=== PATIENT | female | born 1940 | race Caucasian/White ===

== ENCOUNTER → 2016-07-16 | Outpatient (CLI) | payer MEDICARE ==
[2015-06-20 19:25] VITALS: BP 218/87
--- NOTE | 2016-07-16 09:19 | CARD ---
APPROVED REPORT EXAM: Two-dimensional and M-mode echocardiogram with Doppler and color Doppler. Other Information Quality : Average Rhythm : NSR INDICATION Murmur 2D DIMENSIONS RVDd3.1 (2.9-3.5cm)Left Atrium(2D)3.3 (1.6-4.0cm) IVSd1.2 (0.7-1.1cm)Aortic Root(2D)2.9 (2.0-3.7cm) LVDd3.7 (3.9-5.9cm)LVOT Diameter2.0 (1.8-2.4cm) PWd1.2 (0.7-1.1cm)LVDs2.6 (2.5-4.0cm) FS (%) 31.7 %SV36.1 ml LVEF(%)60.6 (>50%) Aortic Valve AoV Peak Abimael.195.6cm/sAoV VTI43.7cm AO Peak GR.15.3mmHgLVOT Peak Abimael.117.5cm/s LVOT VTI 26.96cmAO Mean GR.9mmHg LUANA (VMAX)1.87xj7KQE (VTI)1.98cm2 AI P 1/2 Loig167rz Mitral Valve MV E Ywgvzflc736.4cm/sMV DECEL SZWC029iv MV A Nocuamhg209.7cm/sMV E Mean Gr.4mmHg MV TRH96viH/A Ratio0.9 MV A Kdnwiulz053ueFLX (PHT)2.33cm2 TDI E/Lateral E'14.2E/Medial E'20.1 Pulmonary Valve PV Peak Uhspwjln37.7cm/sPV Peak Grad.3mmHg RVOT VTI12.8cm Tricuspid Valve TR P. Cxirriqu557gt/sRAP ZPYZNKML5rvXy TR Peak Gr.72krKrHSYB50gvFl Pulmonary Vein S1 Dprhawap52.0cm/sD2 Okeuxvxn43.2cm/s LEFT VENTRICLE The left ventricle is normal size. There is borderline concentric left ventricular hypertrophy. Left ventricle systolic function is normal. The Ejection Fraction is 55-60%. There is normal LV segmental wall motion. The left ventricular diastolic function and filling is normal for age. RIGHT VENTRICLE The right ventricle is normal size. The right ventricular systolic function is normal. ATRIA The left atrium size is normal. The right atrium size is normal. The interatrial septum is intact wit h no evidence for an atrial septal defect or patent foramen ovale as noted on 2-D or Doppler imaging. AORTIC VALVE The aortic valve is mildly to moderately sclerotic. Doppler and Color Flow revealed moderate aortic r egurgitation. There is no significant aortic valvular stenosis. MITRAL VALVE The mitral valve leaflets are thickened. There is no mitral valve stenosis. Doppler and Color Flow re vealed mild mitral regurgitation. TRICUSPID VALVE The tricuspid valve is normal in structure. Doppler and Color Flow revealed mild tricuspid regurgitat ion. The PA pressure was estimated at 30 mmHg. There is no tricuspid valve stenosis. PULMONIC VALVE The pulmonic valve is not well visualized. Doppler and Color Flow revealed trace to mild pulmonic shania vular regurgitation. There is no pulmonic valvular stenosis. GREAT VESSELS The aortic root is normal in size. Normal pulmonary venous flow (Doppler). The IVC is normal in size and collapses >50% with inspiration. PERICARDIAL EFFUSION There is no evidence of significant pericardial effusion. Critical Notification Critical Value: No <Conclusion> Left ventricle systolic function is normal. The Ejection Fraction is 55-60%. There is normal LV segmental wall motion. Doppler and Color Flow revealed moderate aortic regurgitation. Doppler and Color Flow revealed mild mitral regurgitation.
== END | disposition home or self-care (01) ==
LOC: ECHO 07:47
PROVIDERS: ATTEND Family Medicine
DX: R01.1 Cardiac murmur, unspecified (principal); I35.1 Nonrheumatic aortic (valve) insufficiency; I51.7 Cardiomegaly
CPT/HCPCS: 93306

== ENCOUNTER → 2017-08-28 | Outpatient (CLI) | payer OTHER | END | disposition home or self-care (01) | LOC: US 12:14 | DX: I70.293 Other atherosclerosis of native arteries of extremities, bilateral legs (principal); I10 Essential (primary) hypertension | CPT/HCPCS: 93925 ==

== ENCOUNTER → 2017-09-18 | Outpatient (CLI) | payer OTHER ==
[~2017-09-18] MED LIST: HEPARIN for ARTERIAL LINE 0 ML; IODIXANOL 320 MG/ML 100 ML VIAL.; LIDOCAINE WITH 8.4% SOD BICARB 3 ML DISP.SYRIN.
[2017-09-18 07:18] LABS: ADD MAN DIFF? NO
[2017-09-18 07:32] LABS: BASO % 1 % (0-3); EOS # 0.3 x10^3/uL (0.0-0.7); EOS % 4 % (0-3); HEMATOCRIT 39.4 % (36.0-47.0); LYMPH # 2.7 x10^3/uL (1.0-4.8); LYMPH % 34 % (24-48); MEAN CORPUSCULAR HEMOGLOBIN 25 pg (25-35); MEAN CORPUSCULAR HGB CONC 33 g/dL (31-37); MEAN CORPUSCULAR VOLUME 77 fL (79-100); MONO % 12 % (0-9); NEUT # 4.1 x10^3uL (1.8-7.7); NEUT % 51 % (31-73); PLATELET COUNT 206 x10^3/uL (140-400); RED BLOOD COUNT 5.13 x10^6/uL (3.50-5.40); RED CELL DISTRIBUTION WIDTH 14.6 % (11.5-14.5); WHITE BLOOD COUNT 8.1 x10^3/uL (4.0-11.0)
[2017-09-18 07:37] LABS: ANION GAP 7 (6-14); BLOOD UREA NITROGEN 17 mg/dL (7-20); CALCIUM 8.6 mg/dL (8.5-10.1); CARBON DIOXIDE 30 mmol/L (21-32); CHLORIDE 106 mmol/L (98-107); CREATININE 0.7 mg/dL (0.6-1.0); GFR 80.9; GLUCOSE 99 mg/dL (70-99); POTASSIUM 3.9 mmol/L (3.5-5.1); SODIUM 143 mmol/L (136-145)
[2017-09-18 07:39] LABS: PARTIAL THROMBOPLASTIN TIME 25 SEC (24-38); PROTHROMBIN TIME PATIENT 12.4 SEC (11.7-14.0)
[2017-09-18] MEDS: IOHEXOL 300 MG/ML 100ML VIAL. IV (08:47)
== END | disposition home or self-care (01) ==
LOC: INTRAD 06:55
DX: I70.0 Atherosclerosis of aorta (principal); I70.1 Atherosclerosis of renal artery; I70.293 Other atherosclerosis of native arteries of extremities, bilateral legs; Z90.49 Acquired absence of other specified parts of digestive tract; Z98.890 Other specified postprocedural states; I10 Essential (primary) hypertension; Z90.710 Acquired absence of both cervix and uterus; M19.90 Unspecified osteoarthritis, unspecified site; F17.200 Nicotine dependence, unspecified, uncomplicated; Z79.01 Long term (current) use of anticoagulants
CPT/HCPCS: 36415; 75635; 80048; 85025; 85610; 85730; Q9967

== ENCOUNTER 2017-10-21 06:40 | Outpatient (CLI) | payer OTHER ==
[2017-10-21 07:28] LABS: ADD MAN DIFF? NO
[2017-10-21 07:32] LABS: BASO # 0.1 x10^3/uL (0.0-0.2); BASO % 1 % (0-3); EOS # 0.4 x10^3/uL (0.0-0.7); EOS % 6 % (0-3); HEMATOCRIT 40.3 % (36.0-47.0); HEMOGLOBIN 13.2 g/dL (12.0-15.5); LYMPH % 42 % (24-48); MEAN CORPUSCULAR HEMOGLOBIN 25 pg (25-35); MEAN CORPUSCULAR HGB CONC 33 g/dL (31-37); MEAN CORPUSCULAR VOLUME 77 fL (79-100); MONO % 14 % (0-9); NEUT # 2.6 x10^3uL (1.8-7.7); NEUT % 37 % (31-73); PLATELET COUNT 193 x10^3/uL (140-400); RED BLOOD COUNT 5.22 x10^6/uL (3.50-5.40); RED CELL DISTRIBUTION WIDTH 14.9 % (11.5-14.5); WHITE BLOOD COUNT 7.1 x10^3/uL (4.0-11.0)
[2017-10-21 07:38] LABS: INR 0.9 (0.8-1.1); PROTHROMBIN TIME PATIENT 12.1 SEC (11.7-14.0)
[2017-10-21 08:07] LABS: ANION GAP 4 (6-14); BLOOD UREA NITROGEN 13 mg/dL (7-20); BUN/CREATININE RATIO 14 (6-20); CALCIUM 8.3 mg/dL (8.5-10.1); CARBON DIOXIDE 29 mmol/L (21-32); CHLORIDE 106 mmol/L (98-107); CREATININE 0.9 mg/dL (0.6-1.0); GFR 60.6; GLUCOSE 94 mg/dL (70-99); POTASSIUM 3.7 mmol/L (3.5-5.1); SODIUM 139 mmol/L (136-145)
[2017-10-21 08:19] LABS: ALBUMIN 3.6 g/dL (3.4-5.0); ALBUMIN/GLOBULIN RATIO 1.2 (1.0-1.7); ALK PHOS 65 U/L (46-116); ALT (SGPT) 16 U/L (14-59); AST (SGOT) 24 U/L (15-37); TOTAL BILIRUBIN 0.4 mg/dL (0.2-1.0); TOTAL PROTEIN 6.7 g/dL (6.4-8.2)
[2017-10-21] MEDS ORDERED: IODIXANOL 320 MG/ML 100 ML VIAL. (08:20)
[2017-10-21] MEDS ORDERED: LIDOCAINE WITH 8.4% SOD BICARB 3 ML DISP.SYRIN. (08:21)
[2017-10-21] MEDS ORDERED: HEPARIN for ARTERIAL LINE 1,500 ML (08:21)
[2017-10-21] MEDS ORDERED: HEPARIN for IV BOLUS 10,000 UNIT/10 ML VIAL. (08:22)
[2017-10-21] MEDS ORDERED: MIDAZOLAM HCL/PF 2 MG/2 ML VIAL. (08:22)
[2017-10-21] MEDS ORDERED: fentaNYL PF VIAL 100 MCG/2 ML VIAL ×2 (08:22→09:38)
[2017-10-21] MEDS: MIDAZOLAM HCL/PF 2 MG/2 ML VIAL. IV (08:45)
[2017-10-21] MEDS: LIDOCAINE WITH 8.4% SOD BICARB 3 ML DISP.SYRIN. IJ (08:45)
[2017-10-21] MEDS: IODIXANOL 320 MG/ML 100 ML VIAL. IART (08:45)
[2017-10-21] MEDS: fentaNYL PF VIAL 100 MCG/2 ML VIAL IV ×2 (08:45→09:51)
[2017-10-21] MEDS ORDERED: CONTRAST GIVEN. MC (09:00)
[2017-10-21] MEDS: HEPARIN for IV BOLUS 10,000 UNIT/10 ML VIAL. IV (09:00)
[2017-10-21] MEDS ORDERED: hydrALAZINE 20 MG/ML VIAL. (09:44)
[2017-10-21] MEDS: hydrALAZINE 20 MG/ML VIAL. IVP (09:52)
[2017-10-21] MEDS: IBUPROFEN 400 MG TABLET. PO (10:56)
[2017-10-21] MEDS: HYDROcodone/APAP 5/325MG 1 TAB TABLET PO (11:07)
[2017-10-22] MEDS ORDERED: CLOPIDOGREL BISULFATE 75 MG TABLET PO (08:00)
== END 2017-10-21 14:13 | disposition home or self-care (01) ==
LOC: INTRAD 06:40
DX: I70.292 Other atherosclerosis of native arteries of extremities, left leg (principal)
CPT/HCPCS: 36415; 37224; 75625; 75710; 76937; 80053; 85025; 85610; 99152; 99153; C1713; C1760; C1769; C1892; C1894; C2623; G0269; J0360; J1644; J2250; J3010

== ENCOUNTER 2017-10-27 06:33 | Emergency (ER) | payer OTHER | END 2017-10-27 09:35 | disposition home or self-care (01) | LOC: ER 06:33 | DX: R10.30 Lower abdominal pain, unspecified (principal); I10 Essential (primary) hypertension; I73.9 Peripheral vascular disease, unspecified | CPT/HCPCS: 93926; 99284-25 ==

== ENCOUNTER → 2017-12-04 | Outpatient (CLI) | payer OTHER ==
[2017-10-27 09:15] VITALS: BP 161/71
[~2017-12-04] MED LIST changes: +CLOP75TA PO; -HEPARIN for ARTERIAL LINE 0 ML; -IODIXANOL 320 MG/ML 100 ML VIAL.; -LIDOCAINE WITH 8.4% SOD BICARB 3 ML DISP.SYRIN.; +LISI10TA2 PO
--- NOTE | 2017-12-04 10:16 | CARD ---
MR#: [id number] Date of Study: 12/04/2017 Ordering Physician: ANNA MARRUFO, Referring Physician: ANNA MARRUFO, Tech: CHRISTAL Villalobos APPROVED REPORT EXAM: Two-dimensional and M-mode echocardiogram with Doppler and color Doppler. Other Information Quality : GoodHR: 72bpm INDICATION Moderate Aortic Regurgitation RISK FACTORS Hypertension 2D DIMENSIONS RVDd2.9 (2.9-3.5cm)Left Atrium(2D)3.6 (1.6-4.0cm) IVSd1.5 (0.7-1.1cm)Aortic Root(2D)3.1 (2.0-3.7cm) LVDd4.4 (3.9-5.9cm)LVOT Diameter2.0 (1.8-2.4cm) PWd1.2 (0.7-1.1cm)LVDs3.0 (2.5-4.0cm) FS (%) 31.9 %SV51.6 ml LVEF(%)60.2 (>50%) Aortic Valve AoV Peak Abimael.212.2cm/sAoV VTI47.7cm AO Peak GR.18.0mmHgLVOT Peak Abimael.122.0cm/s LVOT VTI 31.10cmAO Mean GR.10mmHg LUANA (VMAX)1.45ev3GRO (VTI)2.08cm2 AI P 1/2 Ouxi947hw Mitral Valve MV E Eroqvyrm89.0cm/sMV E Peak Gr.110mmHg MV DECEL LHKG251kuGZ A Wsohysdn498.2cm/s MV BNZ07dlH/A Ratio0.8 MVA (PHT)2.44cm2 TDI E/Lateral E'13.7E/Medial E'18.1 Pulmonary Valve PV Peak Paoyxvsa64.3cm/sPV Peak Grad.2mmHg Tricuspid Valve TR P. Grhztsst849uf/sRAP LVAOFFMY54ihFo TR Peak Gr.15dhYuTOMH71ovSy Pulmonary Vein S1 Woxjkjsl00.2cm/sD2 Dfhbpkls76.8cm/s LEFT VENTRICLE The left ventricle is normal size. There is mild to moderate concentric left ventricular hypertrophy. The left ventricular systolic function is normal. The ejection fraction is estimated at 60%. There i s normal LV segmental wall motion. Transmitral Doppler flow pattern is Grade I-abnormal relaxation pa ttern. RIGHT VENTRICLE The right ventricle is normal size. The right ventricular systolic function is normal. ATRIA The left atrium size is normal. The right atrium size is normal. The interatrial septum is intact wit h no evidence for an atrial septal defect or patent foramen ovale as noted on 2-D or Doppler imaging. AORTIC VALVE The aortic valve is mildly calcified. Doppler and Color Flow revealed moderate aortic regurgitation. There is no significant aortic valvular stenosis. There is no aortic valvular vegetation. MITRAL VALVE The mitral valve is mildly thickened. Mitral annular calcification is mild. There is no evidence of m itral valve prolapse. There is no mitral valve stenosis. Doppler and Color-flow revealed mild mitral regurgitation. TRICUSPID VALVE The tricuspid valve leaflets are thickened , but open well. Doppler and Color Flow revealed mild tric uspid regurgitation. There is moderate pulmonary hypertension. The PA pressure was estimated at 45 mm Hg. There is no tricuspid valve prolapse or vegetation. There is no tricuspid valve stenosis. PULMONIC VALVE The pulmonic valve is not well visualized. Doppler and Color Flow revealed no pulmonic valvular regur gitation. There is no pulmonic valvular stenosis. GREAT VESSELS The aortic root is normal size. The aortic root displays mild sclerocalcific changes of the aortic ro ot. The IVC is dilated and collapses <50% with inspiration. PERICARDIAL EFFUSION There is no pleural effusion. There is no evidence of significant pericardial effusion. Critical Notification Critical Value: No <Conclusion> The left ventricular systolic function is normal. The ejection fraction is estimated at 60%. There is normal LV segmental wall motion. Transmitral Doppler flow pattern is Grade I-abnormal relaxation pattern. Moderate aortic regurgitation. Mld mitral regurgitation. Mild tricuspid regurgitation. The PA pressure was estimated at 45 mmHg. There is no evidence of significant pericardial effusion. Signed by : Ike Mcguire, Electronically Approved : 12/04/2017 10:15:07
== END | disposition home or self-care (01) ==
LOC: ECHO 09:14
PROVIDERS: ATTEND Family Medicine
DX: I08.3 Combined rheumatic disorders of mitral, aortic and tricuspid valves (principal); I10 Essential (primary) hypertension; M19.90 Unspecified osteoarthritis, unspecified site; F17.200 Nicotine dependence, unspecified, uncomplicated; Z90.49 Acquired absence of other specified parts of digestive tract; Z90.710 Acquired absence of both cervix and uterus; Z79.01 Long term (current) use of anticoagulants
CPT/HCPCS: 93306

== ENCOUNTER 2018-07-07 06:48 | Emergency (ER) | payer MEDICARE, OTHER ==
[~2018-07-07] VITALS: Ht 165.1 cm; Wt 59.0 kg
[2018-07-07] MEDS ORDERED: OXYMETAZOLINE 0.05% NASAL SPRAY 30ML BOTTLE. NS ONE (07:30)
[2018-07-07 07:45] VITALS: BP 174/67
--- NOTE | 2018-07-07 07:58 | PHYS DOC ---
Past Medical History Past Medical History: Diabetes-Type II, Hypertension Past Surgical History: Other Additional Past Surgical Histo: fem pop bypass Alcohol Use: None Drug Use: None Adult General Chief Complaint Chief Complaint: NOSEBLEED HPI HPI 77-year-old female who is on Plavix presents with an atraumatic nosebleed. She states she woke up and felt her nose running wiped it and it was blood. She states the bleeding seems most prominent from the left naris. He denies any pain. She's not had a previous history of significant nosebleeds. She states this is been ongoing for approximately an hour.[] Review of Systems Review of Systems Constitutional: Denies fever or chills [] Eyes: Denies change in visual acuity, redness, or eye pain [] HENT: Per history of present illness[] Respiratory: Denies cough or shortness of breath [] Cardiovascular: No additional information not addressed in HPI [] GI: Denies abdominal pain, nausea, vomiting, bloody stools or diarrhea [] : Denies dysuria or hematuria [] Musculoskeletal: Denies back pain or joint pain [] Integument: Denies rash or skin lesions [] Neurologic: Denies headache, focal weakness or sensory changes [] Endocrine: Denies polyuria or polydipsia [] All other systems were reviewed and found to be within normal limits, except as documented in this note. Current Medications Current Medications Current Medications Medications (Trade) Dose Ordered Sig/Carlos Start Time Stop Time Status Last Admin Dose Admin Oxymetazoline HCl (Afrin) 2 spray 1X ONCE 07/07/18 07:30 07/07/18 07:31 DC 07/07/18 07:26 2 SPRAY Allergies Allergies Allergies Coded Allergies Type Severity Reaction Last Updated Verified No Known Drug Allergies 06/20/15 No Physical Exam Physical Exam Constitutional: Well developed, well nourished, no acute distress, non-toxic appearance. [] HENT: Significant bleeding from left naris appears anterior but difficult to tell the extent of the bleeding[] Eyes: PERRLA, EOMI, conjunctiva normal, no discharge. [] Neck: Normal range of motion, no tenderness, supple, no stridor. [] Cardiovascular:Heart rate regular rhythm, no murmur [] Lungs & Thorax: Bilateral breath sounds clear to auscultation [] Abdomen: Bowel sounds normal, soft, no tenderness, no masses, no pulsatile masses. [] Skin: Warm, dry, no erythema, no rash. [] Back: No tenderness, no CVA tenderness. [] Extremities: No tenderness, no cyanosis, no clubbing, ROM intact, no edema. [] Neurologic: Alert and oriented X 3, normal motor function, normal sensory function, no focal deficits noted. [] Psychologic: Affect normal, judgement normal, mood normal. [] Current Patient Data Vital Signs Vital Signs Date Time Temp Pulse Resp B/P (MAP) Pulse Ox O2 Delivery O2 Flow Rate FiO2 07/07/18 07:45 97.9 98 20 174/67 (102) 100 Room Air 97.9 EKG EKG [] Radiology/Procedures Radiology/Procedures [] Course & Med Decision Making Course & Med Decision Making Pertinent Labs and Imaging studies reviewed. (See chart for details) [ED course: Evaluation reveals a female with left-sided nosebleed. I had her evacuate all of the blood and clots from her nose and then sprayed 2 sprays of Afrin on the left with good control of bleeding.] Dragon Disclaimer Dragon Disclaimer This electronic medical record was generated, in whole or in part, using a voice recognition dictation system. Departure Departure Impression: Primary Impression: Acute anterior epistaxis Disposition: 01 HOME, SELF-CARE Condition: IMPROVED Referrals: ANNA MARRUFO MD (PCP) Patient Instructions: Nosebleed Additional Instructions: Use the Afrin spray as we discussed. Return to the emergency department with any new or concerning symptoms LESLIE SO DO Jul 07, 2018 07:58
== END 2018-07-07 08:38 | disposition home or self-care (01) ==
LOC: ER 06:48
DX: R04.0 Epistaxis (principal); E11.9 Type 2 diabetes mellitus without complications; I10 Essential (primary) hypertension
CPT/HCPCS: 99282; 99283

== ENCOUNTER → 2020-01-26 | Outpatient (CLI) | payer MEDICARE ==
--- NOTE | 2020-01-26 16:03 | KCIC ---
Bilateral lower extremity arterial duplex study 01/26/2020 CLINICAL HISTORY: Bilateral leg pain. TECHNIQUE: Using a combination of real-time ultrasound imaging and color-flow and pulse Doppler imaging techniques, duplex evaluation of the major dural structures of both lower extremities was performed. Multiple images were obtained. FINDINGS: Moderate atheromatous/atherosclerotic plaque formation is seen scattered throughout the major arterial structures of both lower extremities. The right common femoral artery is triphasic. The right profunda femoral artery is biphasic. The remaining arterial structures of the right lower extremity are monophasic. The left common femoral and proximal left superficial femoral arteries along with the left profundofemoral artery are biphasic. The remaining arterial structures of the left lower extremity are monophasic. The peak systolic velocities throughout the right lower extremity taper normally. No hemodynamically significant stenosis is seen. Significant elevation of the peak systolic velocity within the mid left superficial femoral artery is seen measuring 379 cm per sec and . This finding when compared to the real-time images is consistent with a 50-75 percent stenosis. No additional areas stenosis is seen. No area of occlusion is seen. IMPRESSION: Moderate atheromatous/atherosclerotic plaque formation is seen throughout the major arterial structures of both lower extremities. A 50-75 percent stenosis is seen involving the mid left superficial femoral artery. No area of occlusion is seen. Electronically signed by: Gerardo Martinez MD (01/26/2020 4:00 PM) [id number]
== END ==
LOC: KCIC US 13:54
PROVIDERS: ATTEND Family Medicine
DX: I70.202 Unspecified atherosclerosis of native arteries of extremities, left leg (principal)
CPT/HCPCS: 93925

== ENCOUNTER 2020-06-19 08:31 | Outpatient (CLI) | payer MEDICARE ==
[~2020-06-19] VITALS: Ht 165.1 cm; Wt 59.0 kg
[2020-06-19] VITALS (10 sets, daily range): BP systolic 144–179; BP diastolic 49–86
[~2020-06-19 08:31] MED LIST changes: +LISI10TA16 PO; -LISI10TA2 PO
[2020-06-19 09:09] LABS: BASO # 0.1 x10^3/uL (0.0-0.2); BASO % 1 % (0-3); EOS # 0.3 x10^3/uL (0.0-0.7); EOS % 4 % (0-3); HEMOGLOBIN 12.6 g/dL (12.0-15.5); LYMPH # 2.3 x10^3/uL (1.0-4.8); LYMPH % 35 % (24-48); MEAN CORPUSCULAR HEMOGLOBIN 25 pg (25-35); MEAN CORPUSCULAR HGB CONC 32 g/dL (31-37); MEAN CORPUSCULAR VOLUME 77 fL (79-100); MONO # 0.8 x10^3/uL (0.0-1.1); MONO % 12 % (0-9); NEUT # 3.2 x10^3/uL (1.8-7.7); NEUT % 48 % (31-73); PLATELET COUNT 201 x10^3/uL (140-400); RED BLOOD COUNT 5.07 x10^6/uL (3.50-5.40); WHITE BLOOD COUNT 6.6 x10^3/uL (4.0-11.0)
[2020-06-19 09:13] LABS: CALCIUM 8.4 mg/dL (8.5-10.1); CREATININE 0.8 mg/dL (0.6-1.0)
[2020-06-19] MEDS ORDERED: LIDOCAINE WITH 8.4% SOD BICARB 3 ML DISP.SYRIN. ONE (09:40)
[2020-06-19] MEDS ORDERED: IODIXANOL 320 MG/ML 100 ML VIAL. ONE (09:40)
[2020-06-19] MEDS ORDERED: HEPARIN for ARTERIAL LINE 1,500 ML ONE (09:41)
[2020-06-19 09:45] LABS: PROTHROMBIN TIME PATIENT 12.8 SEC (11.7-14.0)
[2020-06-19] MEDS ORDERED: MIDAZOLAM HCL/PF 2 MG/2 ML VIAL. ONE (10:07)
[2020-06-19] MEDS ORDERED: fentaNYL PF VIAL 100 MCG/2 ML VIAL ONE (10:08)
[2020-06-19] MEDS ORDERED: HEPARIN for IV BOLUS 10,000 UNIT/10 ML VIAL. ONE (10:08)
[2020-06-19] MEDS ORDERED: LIDOCAINE WITH 8.4% SOD BICARB 3 ML DISP.SYRIN. IJ ONE (10:30)
[2020-06-19] MEDS ORDERED: HEPARIN for IV BOLUS 10,000 UNIT/10 ML VIAL. IV ONE (10:30)
[2020-06-19] MEDS ORDERED: IODIXANOL 320 MG/ML 100 ML VIAL. IART ONE (10:30)
[2020-06-19] MEDS ORDERED: fentaNYL PF VIAL 100 MCG/2 ML VIAL IV ONE (10:30)
[2020-06-19] MEDS ORDERED: MIDAZOLAM HCL/PF 2 MG/2 ML VIAL. IV ONE (10:30)
[2020-06-19] MEDS ORDERED: IODIXANOL 320 MG/ML 50ML VIAL. ONE (11:39)
[2020-06-19] MEDS ORDERED: hydrALAZINE 20 MG/ML VIAL. ONE (11:51)
[2020-06-19] MEDS ORDERED: hydrALAZINE 20 MG/ML VIAL. IVP ONE (12:00)
[2020-06-19] MEDS ORDERED: CLOPIDOGREL BISULFATE 75 MG TABLET PO ONE (12:00)
[2020-06-19] MEDS ORDERED: CLOP75TA PO (12:52)
--- NOTE | 2020-06-19 13:09 | PDOC ---
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
--- NOTE | 2020-06-19 13:10 | PDOC ---
MODERATE SEDATION ASSESSMENT RISKS/ALTERNATIVES Risks/Alternatives Risks and alternatives of this type of sedation and procedure discussed with: RISK/ALTERNATIVES: Patient H & P ON CHART H & P H & P on chart and reviewed for co-morbid conditions and appropriate labs. H&P ON CHART: Yes STATUS PREG STATUS ASSESSED: Yes MEDS/ALLERGIES REVIEWED Meds/Allergies Reviewed Medications and Allergies including time and route of recently administered narcotics and sedatives. MEDS/ALLERGIES REVIEWED: Yes ASA RATING ASA RATING: II AIRWAY ASSESSMENT Airway Assessment Airway patency, oral function limitations, presence of caps, crowns, dentures, partials, and ability to extend neck assessed. AIRWAY ASSESSMENT: Yes MALLAMPATI SCORE MALLAMPATI SCORE: II PRE-SEDATION ASSESSMENT PRE-SEDATION ASSESSMENT: Yes DICK ORTEGA MD Jun 19, 2020 13:10
[2020-06-19] MEDS ORDERED: CLOPIDOGREL BISULFATE 75 MG TABLET ONE (14:36)
--- NOTE | 2020-06-19 15:00 | NUR ---
PIV removed, instructions provided on site care, sedation. Patient verbalized understanding. No further questions. Aware that she is not to lift anything over 10lbs, no bath, no exertion. Plavix 75mg daily called in to [facility] by RN at 1440. 300 mg given prior to d/c. Patient's son driving her home. No bleeding at access site. Pain tolerable. DP pulses now palpable after procedure.
--- NOTE | 2020-06-20 11:55 | RAD ---
06/19/2020 Procedure: 1.Pelvic angiogram 2. Right lower extremity angiography 3. Treatment of right superficial femoral artery chronic total occlusion with a combination of balloon angioplasty and stent placement 4. Limited angiography of the left lower extremity Clinical Indication: Severe peripheral vascular disease. Claudication Discussion: The procedure was explained in its entirety to the patient or the patients designated mechanical service representative by a member of the treatment team, including a discussion of the risks, benefits and commonly accepted alternatives to the procedure, as well as the expected consequences of no therapy whatsoever. Discussion of the risks included, but was not limited to, those that are most frequent and those that are rare but possibly severe or life-threatening, as well as the possibility of unforeseen complications. All elements of maximal sterile barrier technique including the use of a cap, mask, sterile gown, sterile gloves, large sterile sheet, appropriate hand hygiene, and 2% chlorhexidine for cutaneous antisepsis (or acceptable alternative antiseptic per current guidelines) were followed for this procedure. Ultrasound evaluation demonstrates a calcified but patent appearance of the left common femoral artery. The artery was accessed using micropuncture technique and direct ultrasound guidance. A 5 [place] vascular sheath was placed. An Omni flush catheter was advanced into the abdominal aorta. A pelvic angiogram was obtained demonstrating no hemodynamically significant stenosis of the aortoiliac vasculature. The aortic bifurcation was crossed and the catheter positioned in the right common femoral artery. Right lower extremity angiography was performed. The right common femoral artery is patent. Right profunda artery is patent. There is chronic total occlusion of the right superficial femoral artery beginning in its midportion reconstituting in the high adductor canal. The patent portions of the vessel demonstrate multifocal high-grade stenosis. The popliteal artery is patent. Mild stenosis is seen in the tibial peroneal trunk. Otherwise tibial vessels are patent to the foot. The chronic total occlusion of the right SFA was traversed and balloon angioplasty performed at 4 mm. This resulted in significantly improved morphology and flow through the majority of the SFA, though there was some irregularity persistent narrowing in the mid SFA. This is treated with placement of a covered stent postdilated to 5 mm. Repeat angiograms were performed now demonstrating to potentially flow-limiting dissections in the more proximal SFA which are treated with proximal extension of the stent this resulted in significantly improved morphology and flow through the SFA Limited left lower extremity angiography was performed to the pre-existing sheath demonstrating multiple mild to moderate stenoses without evidence of high-grade stenosis or occlusion. Angiography of the puncture site was performed. A minx device was deployed and in conjunction with manual pressure was used to achieve hemostasis. Sterile dressings were applied. No immediate complications were identified. Total fluoroscopy time: 31 minutes Dose area product:75 Gycm2 The procedures performed under conscious sedation including continuous cardiopulmonary monitoring via dedicated sedation nurse. Urtm-gv-lydn sedation time: 120 minutes Impression: 1. 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 Multiple mild to moderate stenoses of the left SFA. Prior angioplasty of this vessel and 2018 noted. If following this intervention, the patient should note that the left leg is symptomatic, repeat intervention should be considered
== END 2020-06-19 15:08 | disposition home or self-care (01) ==
LOC: INTRAD 08:31
PROVIDERS: ATTEND Family Medicine
DX: I73.9 Peripheral vascular disease, unspecified (principal); I10 Essential (primary) hypertension; M19.90 Unspecified osteoarthritis, unspecified site; F17.210 Nicotine dependence, cigarettes, uncomplicated; Z90.49 Acquired absence of other specified parts of digestive tract; Z90.710 Acquired absence of both cervix and uterus; Z98.890 Other specified postprocedural states; Z79.899 Other long term (current) drug therapy; Z72.89 Other problems related to lifestyle
CPT/HCPCS: 36415; 37226; 75625; 75716; 76937; 80048; 85025; 85610; 87426; 99152; 99153; C1713; C1725; C1760; C1769; C1892; C1894; C9803; J0360; J1644; J2250; J3010; J3490; Q9967; U0003; G0269

== ENCOUNTER → 2020-08-24 | Outpatient (CLI) | payer MEDICARE ==
[2020-06-19 14:30] VITALS: BP 179/69
[2020-08-24 10:15] LABS: BASO # 0.1 x10^3/uL (0.0-0.2); BASO % 1 % (0-3); EOS # 0.3 x10^3/uL (0.0-0.7); EOS % 4 % (0-3); HEMATOCRIT 38.5 % (36.0-47.0); HEMOGLOBIN 12.7 g/dL (12.0-15.5); LYMPH # 3.1 x10^3/uL (1.0-4.8); LYMPH % 42 % (24-48); MEAN CORPUSCULAR HEMOGLOBIN 25 pg (25-35); MEAN CORPUSCULAR HGB CONC 33 g/dL (31-37); MEAN CORPUSCULAR VOLUME 77 fL (79-100); MONO # 0.7 x10^3/uL (0.0-1.1); MONO % 10 % (0-9); NEUT # 3.3 x10^3/uL (1.8-7.7); NEUT % 44 % (31-73); PLATELET COUNT 203 x10^3/uL (140-400); RED BLOOD COUNT 5.02 x10^6/uL (3.50-5.40); WHITE BLOOD COUNT 7.5 x10^3/uL (4.0-11.0)
[2020-08-24 10:40] LABS: CALCIUM 8.8 mg/dL (8.5-10.1); CREATININE 0.8 mg/dL (0.6-1.0); GFR 68.8; POTASSIUM 4.3 mmol/L (3.5-5.1)
[2020-08-24 10:47] LABS: ALBUMIN 3.8 g/dL (3.4-5.0); ALBUMIN/GLOBULIN RATIO 1.3 (1.0-1.7); TOTAL BILIRUBIN 0.5 mg/dL (0.2-1.0); TOTAL PROTEIN 6.8 g/dL (6.4-8.2)
== END ==
LOC: ONCLAB 09:38
PROVIDERS: ATTEND Internal Medicine Hematology & Oncology
DX: C43.0 Malignant melanoma of lip (principal)
CPT/HCPCS: 36415; 80053; 85025

== ENCOUNTER → 2020-08-31 | Outpatient (CLI) | payer MEDICARE ==
[2020-06-19 14:30] VITALS: BP 179/69
[~2020-08-31] MED LIST changes: +GADOTERATE 5 MMOL/10ML VIAL. IVP ONE; +IOHEXOL 240 MG/ML 50ML VIAL. PO ONE
--- NOTE | 2020-08-31 11:53 | RAD ---
EXAM: Chest, abdomen and pelvis CT without intravenous contrast. HISTORY: Melanoma surveillance. TECHNIQUE: Computed tomographic images of the chest, abdomen and pelvis were obtained without contras t. Multiplanar reformatting was performed. *One or more of the following individualized dose reduction techniques were utilized for this examina tion: 1. Automated exposure control. 2. Adjustment of the mA and/or kV according to patient size. 3. Use of iterative reconstruction technique. COMPARISON: 09/18/2017. FINDINGS: Chest: The heart is normal in size. There is calcified atherosclerotic plaque involving the aorta, aortic arch great vessels and coronary arteries. There is calcification of the aortic valve. There is a prominent ascending aorta measuring 3.9 cm in caliber, stable in appearance. No pathologic ally enlarged mediastinal or hilar lymph node is seen. There is no pneumothorax or pleural effusion. There is no infiltrate. There is no suspicious pulmonary nodule. There is a 2 mm groundglass nodular opacity within the posterior left lower lobe which is likely due to subsegmental atelectasis. There i s a chronic minimal T5 superior endplate depression. Abdomen and pelvis: There is a moderate hiatal hernia. No hepatic lesion is seen on this noncontrast exam. The gallbladder is surgically absent. There is a small proximal duodenal diverticulum. The panc reas, spleen and adrenal glands are unremarkable. There is no hydronephrosis. No suspicious renal les ion is seen. There is no appendicitis. There is a moderate amount of colonic stool. There are few col onic diverticula. There is no bowel obstruction. The bladder is unremarkable. The uterus is absent. T here is no adnexal lesion. There is abdominal aortic and aortic branch vessel atherosclerosis. No pat hologically enlarged lymph node is seen. There are degenerative changes throughout the spine. There i s grade 1 anterolisthesis of L4 on L5, and to a lesser extent, L3 on L4. There is degenerative change primarily at the lower lumbar levels, with associated foraminal and central canal stenosis. IMPRESSION: 1. No acute thoracic, abdominal or pelvic finding. 2. No convincing metastatic disease. Note is made that the exam is limited due to the absence of intr avenous contrast. 3. Moderate colonic stool and few colonic diverticula. 4. Moderate hiatal hernia. Electronically signed by: Carol Pond MD (08/31/2020 11:51 AM) [id number]
--- NOTE | 2020-08-31 12:53 | RAD ---
EXAM: Brain MRI with and without contrast. HISTORY: Melanoma staging. TECHNIQUE: Multiplanar, multisequence magnetic resonance imaging of the brain was performed prior to and following the administration of intravenous contrast. COMPARISON: None. FINDINGS: There is no restricted diffusion to suggest acute or subacute infarction. There is a small focus of susceptibility effect within the left occipital lobe due to chronic microhemorrhage. There i s no mass effect or midline shift. There is no hydrocephalus. There are scattered focal areas of signal change within the cerebral white matter, most commonly due to chronic small vessel disease in patients of this age. There is mild cerebral and cerebellar volume loss. There is no suspicious enhancing lesion. There is evidence of lens surgery. There is posterior right ethmoid sinus and sphenoid sinus mucosal thickening. There is fluid within the left greater than right mastoid air cells. There are normal antwon w voids within the cerebral vessels. There is no suspicious calvarial lesion. IMPRESSION: 1. No acute intracranial finding or evidence of intracranial metastatic disease. 2. Scattered foci of signal change within the cerebral white matter, likely due to chronic small vess el disease. Electronically signed by: Carol Pond MD (08/31/2020 12:51 PM) [id number]
== END ==
LOC: CT 09:55
PROVIDERS: ATTEND Internal Medicine Hematology & Oncology
DX: C43.0 Malignant melanoma of lip (principal); K44.9 Diaphragmatic hernia without obstruction or gangrene; I70.0 Atherosclerosis of aorta; I25.10 Atherosclerotic heart disease of native coronary artery without angina pectoris; K57.30 Diverticulosis of large intestine without perforation or abscess without bleeding; Z90.49 Acquired absence of other specified parts of digestive tract
CPT/HCPCS: 70553; 71250; 74176; A9575; Q9966

== ENCOUNTER → 2020-10-26 | Outpatient (CLI) | payer MEDICARE ==
[2020-06-19 14:30] VITALS: BP 179/69
[~2020-10-26] MED LIST changes: +CONTRAST GIVEN. MC PRN; -GADOTERATE 5 MMOL/10ML VIAL. IVP ONE; -IOHEXOL 240 MG/ML 50ML VIAL. PO ONE; +IOHEXOL 350 MG/ML 100 ML VIAL. IV ONE
--- NOTE | 2020-10-26 15:06 | RAD ---
CTA AORTA/RUNOFF W/WO +POST History: Reason: BILAT LEG PAIN H/O PRIOR SFA INTERVENTION Technique: CT angiogram abdomen and pelvis with lower extremity runoff with intravenous contrast. Cor onal and sagittal reconstructions were performed. 3-D reconstructions were performed. Exposure: One or more of the following individualized dose reduction techniques were utilized for thi s examination: 1. Automated exposure control 2. Adjustment of the mA and/or kV according to patient size 3. Use of iterative reconstruction technique. Comparison: CT chest abdomen and pelvis 08/31/2020. CT angiogram with runoff 09/18/2017. Findings: Lower chest: No consolidation or pleural effusion. Mitral valve calcification and coronary artery ryan cification. Abdomen and pelvis: Small hiatal hernia. Status post cholecystectomy with mild dilatation of the comm on bile duct. Angiogram: Heavy atherosclerotic disease of the aorta without aneurysm. The origins of the celiac, beard perior mesenteric artery and renal arteries are patent however stenotic. Inferior mesenteric artery o rigin is patent. Bilateral common iliac, internal iliac, external iliac arteries patent. Significant bilateral common femoral artery atherosclerosis with patent origins of the deep femoral arteries. There is occlusion of the proximal right superficial femoral artery immediately before the origin of the right SFA stent. The right SFA stent is completely occluded, with collateral recannulization dist ally at the level of popliteal artery. Stenotic calcified popliteal artery with patent trifurcation t o the level of the ankle. Posterior tibial and dorsalis pedis artery is patent to the foot. The left superficial femoral artery is patent with high-grade stenosis at the level of the mid femora l diaphysis (axial 191) and near complete stenosis at the level of the distal femoral diaphysis (axia l image 232). The popliteal artery is patent with three-vessel runoff to the foot. Bones: No pathologic osseous lesions. Grade 1 anterolisthesis of L4 on L5. Severe degenerative disc d isease at L5-S1. Impression: 1. Peripheral vascular disease with complete occlusion of the right superficial femoral artery stent with collateral reconstitution at the popliteal artery. 2. High-grade stenosis at the left superficial femoral artery with near complete stenosis at the lev el of the distal femoral diaphysis. Electronically signed by: Kemar Soriano MD (10/26/2020 3:03 PM) [facility]
== END ==
LOC: CT 08:56
PROVIDERS: ATTEND Surgery
DX: I70.202 Unspecified atherosclerosis of native arteries of extremities, left leg (principal); I70.8 Atherosclerosis of other arteries; I70.0 Atherosclerosis of aorta; I25.10 Atherosclerotic heart disease of native coronary artery without angina pectoris; I34.8 Other nonrheumatic mitral valve disorders; K44.9 Diaphragmatic hernia without obstruction or gangrene; M51.37 Other intervertebral disc degeneration, lumbosacral region; M43.16 Spondylolisthesis, lumbar region; Z90.49 Acquired absence of other specified parts of digestive tract; Z87.898 Personal history of other specified conditions
CPT/HCPCS: 75635; Q9967

== ENCOUNTER 2021-04-25 15:51 | Emergency (ER) | payer MEDICARE ==
[~2021-04-25] VITALS: Ht 167.6 cm; Wt 65.0 kg
[~2021-04-25 15:51] MED LIST changes: -DEXA6TAB6 PO; -FERR-36 PO; -IV RINGERS,LACTATED 1000ML 1,000 ML IV SCH; -PROPOFOL 10 MG/ML (20ML) VIAL. IV ONE
--- NOTE | 2021-04-25 17:19 | ED.ADGEN ---
Past Medical History Past Medical History: Diabetes-Type II, Hypertension Additional Past Medical Histor: Colonoscopy with polyp removal 04/25/21 Past Surgical History: No Surgical History Additional Past Surgical Histo: STENTS IN LEGS BILATERALLY Smoking Status: Never Smoker Alcohol Use: None Drug Use: None General Adult EDM: Chief Complaint: POST-OP PROBLEM HPI: HPI: Patient is a 80 year old female coming in for rectal bleeding. Patient had a colonoscopy this morning and had 1 polyp removed. She also had an EGD. Patient got home but immediately started having dark red blood per rectum, denies any rectal pain. Says she has had some bloating but denies any lower abdominal pain. Patient is taking Plavix for stents in her legs. Patient states she was recently diagnosed with anemia by her primary care provider and has been having dark tarry stools for a while. Denies any lightheadedness but says she has felt fatigued and cold. Review of Systems: Review of Systems: All other systems within normal limits except for as noted in the HPI Current Medications: Current Medications Medications (Trade) Dose Ordered Sig/Carlos Start Time Stop Time Status Last Admin Dose Admin Info (CONTRAST GIVEN -- Rx MONITORING) 1 each PRN DAILY PRN 04/25/21 17:45 04/27/21 17:44 Iohexol (Omnipaque 300 Mg/ml) 75 ml 1X ONCE 04/25/21 17:45 04/25/21 17:46 DC 04/25/21 17:54 75 ML Allergies: Allergies: Allergies Coded Allergies Type Severity Reaction Last Updated Verified No Known Drug Allergies 04/25/21 No Physical Exam: PE: Constitutional: Well developed, well nourished, no acute distress, non-toxic appearance. [] HENT: Normocephalic, atraumatic, bilateral external ears normal, nose normal. [] Eyes: PERRLA, conjunctiva normal, no discharge. [] Neck: No rigidity, supple, no stridor. [] Cardiovascular: Regular rate and rhythm, brisk cap refill [] Lungs & Thorax: Non labored symmetric respirations, no tachypnea or respiratory distress [] Abdomen: Soft, nondistended, no guarding to palpation, dried blood on rectal exam no active bleeding. Skin: Warm, dry, no erythema, no rash. [] Back: Unremarkable Extremities: No deformities, range of motion grossly intact, no lower extremity edema [] Neurologic: Alert and oriented X 3, no focal deficits noted. [] Psychologic: Affect normal, judgement normal, mood normal. [] Constitutional: Well developed, well nourished, no acute distress, non-toxic appearance HENT: Normocephalic, atraumatic Eyes: Conjunctiva normal, no discharge Neck: Normal range of motion, supple Lungs & Thorax: No respiratory distress, equal chest rise and fall Abdomen: Soft, no tenderness, no guarding/rebound tenderness/distention Skin: Warm, dry, no erythema, no rash Extremities: No tenderness, ROM intact, no edema Neurologic: Alert and oriented X 3, no focal deficits noted Psychologic: Affect normal, judgment normal Current Patient Data: Labs: Laboratory Tests Test 04/25/21 17:16 White Blood Count 6.0 x10^3/uL (4.0-11.0) Red Blood Count 4.60 x10^6/uL (3.50-5.40) Hemoglobin 10.9 g/dL (12.0-15.5) L Hematocrit 34.0 % (36.0-47.0) L Mean Corpuscular Volume 74 fL (79-100) L Mean Corpuscular Hemoglobin 24 pg (25-35) L Mean Corpuscular Hemoglobin Concent 32 g/dL (31-37) Red Cell Distribution Width 21.8 % (11.5-14.5) H Platelet Count 184 x10^3/uL (140-400) Neutrophils (%) (Auto) 42 % (31-73) Lymphocytes (%) (Auto) 46 % (24-48) Monocytes (%) (Auto) 9 % (0-9) Eosinophils (%) (Auto) 3 % (0-3) Basophils (%) (Auto) 1 % (0-3) Neutrophils # (Auto) 2.5 x10^3/uL (1.8-7.7) Lymphocytes # (Auto) 2.8 x10^3/uL (1.0-4.8) Monocytes # (Auto) 0.5 x10^3/uL (0.0-1.1) Eosinophils # (Auto) 0.2 x10^3/uL (0.0-0.7) Basophils # (Auto) 0.0 x10^3/uL (0.0-0.2) Platelet Estimate Adequate (ADEQUATE) Large Platelets Few Polychromasia Hypochromasia Mod Poikilocytosis Mod Basophilic Stippling Present Anisocytosis Mod Microcytosis Slight Spherocytes Occ Tear Drop Cells Occ Ovalocytes Mod Schistocytes Few RBC Morphology Bizarre Forms Few Prothrombin Time 12.2 SEC (11.7-14.0) Prothrombin Time INR 0.9 (0.8-1.1) Stool Occult Blood Positive (NEG) Sodium Level 142 mmol/L (136-145) Potassium Level 3.7 mmol/L (3.5-5.1) Chloride Level 106 mmol/L (98-107) Carbon Dioxide Level 28 mmol/L (21-32) Anion Gap 8 (6-14) Blood Urea Nitrogen 10 mg/dL (7-20) Creatinine 0.7 mg/dL (0.6-1.0) Estimated GFR (Cockcroft-Gault) 80.3 BUN/Creatinine Ratio 14 (6-20) Glucose Level 121 mg/dL (70-99) H Calcium Level 7.7 mg/dL (8.5-10.1) L Total Bilirubin 0.2 mg/dL (0.2-1.0) Aspartate Amino Transferase (AST) 34 U/L (15-37) Alanine Aminotransferase (ALT) 17 U/L (14-59) Alkaline Phosphatase 76 U/L (46-116) Total Protein 5.5 g/dL (6.4-8.2) L Albumin 3.0 g/dL (3.4-5.0) L Albumin/Globulin Ratio 1.2 (1.0-1.7) Laboratory Tests 04/25/21 17:16 Laboratory Tests 04/25/21 17:16 Vital Signs: Vital Signs Date Time Temp Pulse Resp B/P (MAP) Pulse Ox O2 Delivery O2 Flow Rate FiO2 04/25/21 16:35 98.0 81 18 176/86 (116) 99 Room Air 98.0 EKG: EKG: [] Heart Score: C/O Chest Pain: N/A Radiology/Procedures: Radiology/Procedures: PROCEDURE: CT ABD PELV W/ IV CONTRST ONLY PQRS Compliance Statement: One or more of the following individualized dose reduction techniques were utilized for this examination: 1. Automated exposure control 2. Adjustment of the mA and/or kV according to patient size 3. Use of iterative reconstruction technique CT abdomen/pelvis with contrast 04/25/2021 5:39 PM INDICATION: Post colonoscopy COMPARISON: None available TECHNIQUE: Multiple axial CT images of the abdomen and pelvis were obtained after the intravenous administration of 75 mL Omnipaque 300. Coronal and sagittal reformats are provided. FINDINGS: Lung bases are clear. Heart size is within normal limits. Three-vessel coronary artery vascular calcifications are only partially profiled. Small hiatal hernia. Liver, spleen, adrenal glands and pancreas are normal in appearance. Gallbladder surgically absent. Common bile duct measures up to 11 mm, within normal limits status post cholecystectomy. Abdominal aorta is normal in course and caliber with moderate calcified atheromatous plaque. There is focal high-grade stenosis at the right common femoral artery. No free intraperitoneal air. No free fluid. No pathologically enlarged lymph nodes. The kidneys enhance symmetrically. There is no suspicious renal mass. There is no hydronephrosis. There are no suspected calculi within the kidneys, ureters or urinary bladder. Small large bowel are normal in caliber. No bowel obstruction or inflammation. Appendix is normal. Urinary bladder is within normal limits given degree of distention. No suspicious pelvic mass. No significant osseous abnormality. Moderate lumbar spondylosis at the lumbosacral junction. Tiny umbilical hernia is identified minimal skin thickening. IMPRESSION: No bowel obstruction or inflammation. No rectal inflammation. Tiny umbilical hernia with mild induration along the skin. Electronically signed by: Nathalia Grissom MD (04/25/2021 6:10 PM) [facility] Course & Med Decision Making: Course & Med Decision Making Pertinent Labs and Imaging studies reviewed. (See chart for details) 1800- Sign out received from Dr. Johnson for patient with history of rectal bleeding s/p colonoscopy with polyp removal this AM by Dr. Loo (GI). Patient pending CT imaging at time of sign out. VS stable. Labs reviewed. Patient with history of anemia. H/H stable. CT imaging without acute findings. Patient seen and evaluated by myself. Discussed case with Dr. Loo (GI) regarding with recommendation for clear liquid diet for next 24 hours and to hold Plavix for next 48 hours. Patient stable for discharge with outpatient follow-up with PCP/GI. Discussed findings and plan with patient and family, who acknowledge understanding and agreement. Ashley Disclaimer: Ashley Disclaimer: This electronic medical record was generated, in whole or in part, using a voice recognition dictation system. Departure Departure Impression: Primary Impression: Rectal bleeding Additional Impression: S/P colonoscopic polypectomy Disposition: HOME / SELF CARE / HOMELESS Condition: STABLE Referrals: ANNA MARRUFO MD (PCP) JIN LOO MD Patient Instructions: Colon Polyps, Colonoscopy, Care After, [id number], Rectal Bleeding, [id number] Additional Instructions: Your bleeding is likely secondary to recent polyp removal during colonoscopy. Your blood counts are stable. Increase fluid hydration. Follow closely with GI. Clear liquid diet for next 24 hours. Hold your Plavix for next 48 hours. Problem Qualifiers RUBY JOHNSON MD Apr 25, 2021 17:19 ANNA BRYSON DO Apr 25, 2021 18:40
[2021-04-25 17:31] LABS: BASO % 1 % (0-3); EOS # 0.2 x10^3/uL (0.0-0.7); EOS % 3 % (0-3); HEMOGLOBIN 10.9 g/dL (12.0-15.5); LYMPH # 2.8 x10^3/uL (1.0-4.8); LYMPH % 46 % (24-48); MEAN CORPUSCULAR HEMOGLOBIN 24 pg (25-35); MEAN CORPUSCULAR HGB CONC 32 g/dL (31-37); MEAN CORPUSCULAR VOLUME 74 fL (79-100); MONO # 0.5 x10^3/uL (0.0-1.1); MONO % 9 % (0-9); NEUT # 2.5 x10^3/uL (1.8-7.7); NEUT % 42 % (31-73); PLATELET COUNT 184 x10^3/uL (140-400); RED CELL DISTRIBUTION WIDTH 21.8 % (11.5-14.5)
[2021-04-25 17:36] LABS: CALCIUM 7.7 mg/dL (8.5-10.1); CREATININE 0.7 mg/dL (0.6-1.0); GFR 80.3; POTASSIUM 3.7 mmol/L (3.5-5.1)
[2021-04-25 17:40] LABS: PROTHROMBIN TIME PATIENT 12.2 SEC (11.7-14.0)
[2021-04-25 17:41] LABS: ALBUMIN/GLOBULIN RATIO 1.2 (1.0-1.7); TOTAL BILIRUBIN 0.2 mg/dL (0.2-1.0); TOTAL PROTEIN 5.5 g/dL (6.4-8.2)
[2021-04-25] MEDS ORDERED: IOHEXOL 300 MG/ML 100ML VIAL. IV ONE (17:45)
[2021-04-25] MEDS ORDERED: CONTRAST GIVEN. MC PRN (17:45)
--- NOTE | 2021-04-25 18:13 | RAD ---
PQRS Compliance Statement: One or more of the following individualized dose reduction techniques were utilized for this examinat ion: 1. Automated exposure control 2. Adjustment of the mA and/or kV according to patient size 3. Use of iterative reconstruction technique CT abdomen/pelvis with contrast 04/25/2021 5:39 PM INDICATION: Post colonoscopy COMPARISON: None available TECHNIQUE: Multiple axial CT images of the abdomen and pelvis were obtained after the intravenous adm inistration of 75 mL Omnipaque 300. Coronal and sagittal reformats are provided. FINDINGS: Lung bases are clear. Heart size is within normal limits. Three-vessel coronary artery vascular calci fications are only partially profiled. Small hiatal hernia. Liver, spleen, adrenal glands and pancrea s are normal in appearance. Gallbladder surgically absent. Common bile duct measures up to 11 mm, wit hin normal limits status post cholecystectomy. Abdominal aorta is normal in course and caliber with moderate calcified atheromatous plaque. There is focal high-grade stenosis at the right common femoral artery. No free intraperitoneal air. No free f luid. No pathologically enlarged lymph nodes. The kidneys enhance symmetrically. There is no suspicious renal mass. There is no hydronephrosis. The re are no suspected calculi within the kidneys, ureters or urinary bladder. Small large bowel are normal in caliber. No bowel obstruction or inflammation. Appendix is normal. Ur inary bladder is within normal limits given degree of distention. No suspicious pelvic mass. No signi ficant osseous abnormality. Moderate lumbar spondylosis at the lumbosacral junction. Tiny umbilical h ernia is identified minimal skin thickening. IMPRESSION: No bowel obstruction or inflammation. No rectal inflammation. Tiny umbilical hernia with mild induration along the skin. Electronically signed by: Nathalia Grissom MD (04/25/2021 6:10 PM) [facility]
[2021-04-25 18:16] LABS: FECAL OB PT POSITIVE (NEG)
[2021-04-25 18:23] LABS: HYPOCHROMIA MOD; PLT ESTIMATE ADEQUATE (ADEQUATE)
[2021-04-25 18:24] LABS: ANISOCYTOSIS MOD; MICROCYTOSIS SLIGHT; POIKILOCYTOSIS MOD
[2021-04-25 18:25] LABS: OVALOCYTES MOD; SPHEROCYTES OCC; TEAR DROP CELLS OCC
[2021-04-25 18:26] LABS: BIZZARE CELLS FEW; SCHISTOCYTES FEW
[2021-04-25 20:16] VITALS: BP 180/76
[2021-04-29] MEDS ORDERED: FERR-36 PO (10:51)
[2021-04-29] MEDS ORDERED: DEXA6TAB6 PO (10:51)
== END 2021-04-25 20:15 | disposition home or self-care (01) ==
LOC: ER 15:51
DX: K62.5 Hemorrhage of anus and rectum (principal); E11.9 Type 2 diabetes mellitus without complications; I10 Essential (primary) hypertension; Z95.5 Presence of coronary angioplasty implant and graft
CPT/HCPCS: 36415; 74177; 80053; 82274; 85025; 85610; 99285; Q9967

== ENCOUNTER → 2021-04-25 | Day surgery (SDC) | payer MEDICARE ==
[~2021-04-25] VITALS: Ht 165.1 cm; Wt 57.5 kg
[~2021-04-25] MED LIST changes: -CONTRAST GIVEN. MC PRN; +DEXA6TAB6 PO; +FERR-36 PO; -IOHEXOL 350 MG/ML 100 ML VIAL. IV ONE; +IV RINGERS,LACTATED 1000ML 1,000 ML IV SCH; +PROPOFOL 10 MG/ML (20ML) VIAL. IV ONE
[2021-04-25 06:19] VITALS: BP 175/72
--- NOTE | 2021-04-25 07:28 | HP ---
DATE OF SERVICE: 04/25/2021 ADMIT DATE: 04/25/2021 REASON FOR ADMISSION: Anemia and melena. HISTORY OF PRESENT ILLNESS: An 80-year-old female whose past medical history is significant for arthritis, anemia, on Plavix as well as hypertension, is seen for ongoing evaluation of anemia with blood count of 7.2. She has had daily bowel movements without melena and/or hematochezia. Weight is down approximately 5 pounds. No family history of inflammatory bowel disease, colon cancer, peptic ulcer disease is noted. With recent lab findings, she requests additional evaluation. PAST MEDICAL HISTORY: Hypertension, anemia, and arthritis. ALLERGIES: None. MEDICATIONS: Plavix and lisinopril. FAMILY AND SOCIAL HISTORY: Significant for diabetes as a child, myocardial infarction with her mother, hypertension with sister, stroke with mother and sister. SOCIAL HISTORY: She is a smoker and nondrinker. PAST SURGICAL HISTORY: Significant for hysterectomy, eye surgery. REVIEW OF SYSTEMS: Per records. PHYSICAL EXAMINATION: GENERAL: Reveals a well-nourished, well-developed female who is alert, cooperative, in no acute distress. VITAL SIGNS: Temperature is 97.6, pulse 76, respirations 14. LUNGS: Clear. CARDIOVASCULAR: Reveals an S1, S2, without S3, S4 or appreciable murmur. ABDOMEN: Reveals a soft abdomen, normal bowel sounds, without appreciable hepatosplenomegaly. EXTREMITIES: Reveals no cyanosis, clubbing or edema. IMPRESSION: Anemia, etiology to be determined. Differential includes esophageal, gastric, and colon cancer, arteriovenous malformations, irritable bowel disease, celiac disease, colon and gastric polyps, Allen's. Risks and benefits of upper endoscopy and colonoscopy were discussed. The patient is willing to proceed at this time. ULISSES DR: Rochelle TID: [id number]
[2021-04-25 08:15] VITALS: BP 180/71
--- NOTE | 2021-04-27 16:06 | PATHOLOGY ---
[facility] Accession Number: [id number] . 01 Material submitted: . sigmoid colon - SIGMOID POLYPECTOMY . 01 Clinical history: . FELIZ, LOOSE BLACK STOOLS EGD, COLONOSCOPY . 02 Diagnosis: Colonic mucosa, sigmoid colon polypectomy: - Mixed hyperplastic/adenomatous polyp. (JPM:lizzeth; 04/27/2021) S 04/27/2021 1403 Local . 02 Comment: There is no high grade dysplasia or evidence of malignancy. (JPM:lizzeth; 04/27/2021) . 02 Electronically signed: . Jose Cohen MD, Pathologist NPI- [id number] . 01 Gross description: . The specimen is received in formalin, labeled "Ruben, Francia, sigmoid polypectomy". Received are 2 segments of sheppard to light brown, polypoid tissue measuring 0.7 and 1.0 cm in maximum dimension. Surgical margins are differentially inked and each segment is bisected. The specimen is entirely submitted in cassette A1. ([facility]; 04/26/2021) NRI/NRI 04/26/2021 1557 Local . 02 Pathologist provided ICD-10: K63.5 . 02 CPT . 910549 Specimen Comment: A courtesy copy of this report has been sent to [phone], [phone] Specimen Comment: [id number] Specimen Comment: Report sent to / DR MARRUFO Specimen Comment: A duplicate report has been generated due to demographic updates. Performed at: 01 [facility] [address], [place], [place] [id number] MD Sathish Mott MD Phone: [phone] Performed at: 02 [facility] [address], [place] [id number] MD Jose Cohen MD Phone: [phone]
== END | disposition home or self-care (01) ==
LOC: ENDOS 05:47
PROVIDERS: ATTEND Internal Medicine Gastroenterology
DX: D50.9 Iron deficiency anemia, unspecified (principal); K92.1 Melena; K64.0 First degree hemorrhoids; K57.30 Diverticulosis of large intestine without perforation or abscess without bleeding; K63.5 Polyp of colon; K31.89 Other diseases of stomach and duodenum; K63.89 Other specified diseases of intestine; K29.50 Unspecified chronic gastritis without bleeding; I10 Essential (primary) hypertension; M19.90 Unspecified osteoarthritis, unspecified site; F17.210 Nicotine dependence, cigarettes, uncomplicated; Z90.49 Acquired absence of other specified parts of digestive tract; Z98.890 Other specified postprocedural states; Z79.899 Other long term (current) drug therapy; Z82.49 Family history of ischemic heart disease and other diseases of the circulatory system
CPT/HCPCS: 43235; 45385; 88305; J2704; 45384